=== PATIENT | female | born 1945 | race Asian ===

== ENCOUNTER 2018-07-18 10:57 | Emergency (ER) | payer MEDICARE ==
[~2018-07-18] VITALS: Ht 162.6 cm; Wt 50.0 kg
--- NOTE | 2018-07-18 12:03 | NUR ---
report has been received from CARLOS Lindsey, care assumed at this time, patient has ambulated to bathroom safely with assistance from her daughter, ZACK.
[2018-07-18 12:08] LABS: BASOPHILS # (AUTO) 0.02 x10^3/uL (0-0.1); BASOPHILS % (AUTO) 0 % (0-1); EOSINOPHILS # (AUTO) 0.12 x10^3/uL (0-0.4); EOSINOPHILS % (AUTO) 2 % (1-7); LYMPHOCYTES # (AUTO) 2.34 x10^3/uL (1-3.4); LYMPHOCYTES % (AUTO) 45 % (22-44); MD NO; MEAN CORPUSCULAR HEMOGLOBIN 29.2 pg (27.0-34.8); MEAN CORPUSCULAR HGB CONC 33.9 g/dL (32.4-35.8); MEAN CORPUSCULAR VOLUME 86.1 fL (80-100); MONOCYTES # (AUTO) 0.39 x10^3/uL (0.2-0.8); MONOCYTES % (AUTO) 8 % (2-9); NEUTROPHILS # (AUTO) 2.28 x10^3/uL (1.8-6.8); NEUTROPHILS % (AUTO) 44 % (42-75); PLATELET COUNT 241 x10^3/uL (130-400); RED BLOOD COUNT 4.34 x10^6/uL (3.82-5.3); RED CELL DISTRIBUTION WIDTH 13.4 % (9.6-15.2)
[2018-07-18 12:18] LABS: INTERNATIONAL NORMALIZED RATIO 0.95 (0.93-1.1); PROTHROMBIN TIME 10.1 Seconds (9.6-11.5)
[2018-07-18 12:20] LABS: ALBUMIN 4.5 g/dL (3.4-5.0); ANION GAP 6 mmol/L (5-15); CALCIUM 8.4 mg/dL (8.5-10.1); CHLORIDE 105 mmol/L (98-107)
[2018-07-18 12:25] LABS: ALANINE AMINOTRANSFERASE 23 U/L (12-78); ALKALINE PHOSPHATASE 91 U/L (45-117); BILIRUBIN,TOTAL 0.8 mg/dL (0.2-1.0); CREATININE 0.97 mg/dL (0.55-1.02); TOTAL PROTEIN 8.3 g/dL (6.4-8.2)
--- NOTE | 2018-07-18 13:54 | NUR ---
patient off unit for MRI, daughter awaiting in the ER room.
[2018-07-18] MEDS ORDERED: GADOBUTROL 7.5 MMOL/7.5 ML PFS ONE (14:16)
--- NOTE | 2018-07-18 14:54 | NUR ---
Patient back from MRI, discharge orders received, NADN, blankets provided, discharge process to follow.
[2018-07-18 15:16] VITALS: BP 168/82
== END 2018-07-18 15:18 | disposition home or self-care (01) ==
LOC: ED 11:23
DX: R51 Headache (principal); E78.00 Pure hypercholesterolemia, unspecified
CPT/HCPCS: 36415; 70450; 70553; 80053; 85025; 85610; 85730; 93005; 99284; A9585